=== PATIENT | female | born 1960 | race Caucasian/White ===

== ENCOUNTER 2023-05-07 07:06 | Outpatient (CLI) | payer OTHER | END 2023-05-07 07:07 | disposition home or self-care (01) | LOC: CSHCT 07:06 | PROVIDERS: ATTEND Internal Medicine Cardiovascular Disease | DX: R93.89 Abnormal findings on diagnostic imaging of other specified body structures (principal); J98.4 Other disorders of lung; K76.89 Other specified diseases of liver | CPT/HCPCS: 71260; 82565 ==